=== PATIENT | female | born 1945 | race Caucasian/White ===

== ENCOUNTER 2023-11-09 09:48 | Outpatient (CLI) | payer OTHER ==
[~2023-11-09 09:48] MED LIST: BIOTIN5 MG PO; EVISTA60 MG PO; INTEGRA PLUS C1 EACH PO; INTEGRA PLUS CAPSULE PO; LOSARTAN POTAS100 MG PO; METFORMIN HCL500 M1 PO; METROPOLOL; NEURONTIN300 MG PO; OSTERA TABLET1 EACH PO; OXYC1TAB9 PO; PRAVASTATIN SOD40 MG PO; TIROSINT50 MCG PO; XARELTO 10MG PO; XARELTO10 MG PO; ZANTAC300 MG PO; [UNRECOGNIZED DRUG - OTHER]
[2023-11-09 11:02] LABS: HEMATOCRIT 33.9 % (36.0-45.00); HEMOGLOBIN 11.4 g/dL (12.0-15.00); MEAN CELL VOLUME 95.5 fL (80.00-100.00); MEAN CORPUSCULAR HEMOGLOBIN 32.1 pg (27.00-32.0); MEAN CORPUSCULAR HGB CONC 33.6 g/dl (32.0-36.0); PLATELET COUNT 166 K/uL (150-450); RED BLOOD COUNT 3.55 M/uL (4.00-6.00); RED CELL DISTRIBUTION WIDTH 13.4 % (11.5-14.5)
[2023-11-09 12:04] LABS: % SATURACION 24.9 % (15-50); ALBUMIN 3.4 gm/dL (3.4-5.0); BILIRUBIN TOTAL 0.43 mg/dL (0.3-1.2); CALCIUM 8.7 mg/dL (8.5-10.1); CREATININE SERUM 1.27 mg/dL (0.55-1.02); FERRITIN 61.4 NG/ML (8-252); GFR 40.8; GLOBULINA 3.4 G/DL (2.4-3.5); POTASSIUM 4.48 mEq/L (3.5-5.1); T4 FREE 1.14 NG/ML (0.76-1.46); TOTAL PROTEIN 6.8 gm/dL (6.4-8.2); TSH 1.99 uIU/mL (0.358-3.74)
[2023-11-09 12:30] LABS: FOLIC ACID 15.37 ng/ml (4.78-20)
[2023-11-09 13:46] LABS: MANUAL PLATELET COUNT 386
[2023-11-09 13:47] LABS: PLATELET ESTIMATE NORMAL (NORMAL)
[2023-11-10 11:11] LABS: CA 125 11.3 U/mL (0.0-38.1)
[2023-11-10 13:07] LABS: hgb a 97.7 % (96.4-98.8); hgb a2 2.3 % (1.8-3.2); hgb f 0 % (0.0-2.0); hgb s 0 % (0.0)
[2023-11-10 17:10] LABS: ERYTHROPOIETIN 19.5 mIU/mL (2.6-18.5)
[2023-11-11 17:11] LABS: INTRINSIC FACTOR BLOCKING AB 1.1 AU/mL (0.0-1.1)
[2023-11-12 07:09] LABS: g6pd quant 102 (127-427); rbc 3.63 x10E6/uL (3.77-5.28)
[2023-11-12 17:06] LABS: PARIETAL CELL ANTIBODIES 1.7 Units (0.0-20.0)
== END 2023-11-09 09:49 | disposition home or self-care (01) ==
LOC: LAB 09:48
PROVIDERS: ATTEND Internal Medicine Hematology & Oncology
DX: D51.1 Vitamin B12 deficiency anemia due to selective vitamin B12 malabsorption with proteinuria (principal); D51.3 Other dietary vitamin B12 deficiency anemia; I10 Essential (primary) hypertension; E11.9 Type 2 diabetes mellitus without complications; E78.2 Mixed hyperlipidemia; M79.7 Fibromyalgia; D50.8 Other iron deficiency anemias; R79.9 Abnormal finding of blood chemistry, unspecified; R74.02 Elevation of levels of lactic acid dehydrogenase [LDH]; K76.89 Other specified diseases of liver; E03.8 Other specified hypothyroidism; C56.9 Malignant neoplasm of unspecified ovary; R97.8 Other abnormal tumor markers; D63.1 Anemia in chronic kidney disease

== ENCOUNTER 2024-03-01 10:14 | Outpatient (CLI) | payer OTHER ==
[2024-03-01 10:54] LABS: HEMATOCRIT 38.2 % (36.0-45.00); HEMOGLOBIN 12.3 g/dL (12.0-15.00); MEAN CELL VOLUME 96.1 fL (80.00-100.00); MEAN CORPUSCULAR HGB CONC 32.3 g/dl (32.0-36.0); PLATELET COUNT 135 K/uL (150-450); RED BLOOD COUNT 3.97 M/uL (4.00-6.00); RED CELL DISTRIBUTION WIDTH 13.5 % (11.5-14.5)
[2024-03-01 12:10] LABS: ALBUMIN 3.7 gm/dL (3.4-5.0); BILIRUBIN TOTAL 0.54 mg/dL (0.3-1.2); CALCIUM 9.1 mg/dL (8.5-10.1); CREATININE SERUM 1.28 mg/dL (0.55-1.02); GFR 40.33; GLOBULINA 3.4 G/DL (2.4-3.5); POTASSIUM 4.02 mEq/L (3.5-5.1); TOTAL PROTEIN 7.1 gm/dL (6.4-8.2)
[2024-03-01 13:53] LABS: MANUAL PLATELET COUNT 238
[2024-03-01 13:54] LABS: PLATELET ESTIMATE NORMAL (NORMAL)
[2024-03-01 14:31] LABS: FOLIC ACID > 20.00 ng/ml (4.78-20)
== END 2024-03-01 10:20 | disposition home or self-care (01) ==
LOC: LAB 10:14
PROVIDERS: ATTEND Internal Medicine Hematology & Oncology
DX: D55.0 Anemia due to glucose-6-phosphate dehydrogenase [G6PD] deficiency (principal); D51.1 Vitamin B12 deficiency anemia due to selective vitamin B12 malabsorption with proteinuria; D51.3 Other dietary vitamin B12 deficiency anemia; D50.8 Other iron deficiency anemias; I10 Essential (primary) hypertension; E11.9 Type 2 diabetes mellitus without complications; E78.2 Mixed hyperlipidemia; M79.7 Fibromyalgia; R79.9 Abnormal finding of blood chemistry, unspecified; R74.02 Elevation of levels of lactic acid dehydrogenase [LDH]; K76.89 Other specified diseases of liver; D51.8 Other vitamin B12 deficiency anemias

== ENCOUNTER 2024-07-12 11:01 | Outpatient (CLI) | payer OTHER ==
[2024-07-12 12:06] LABS: HEMATOCRIT 38.8 % (36.0-45.00); HEMOGLOBIN 12.6 g/dL (12.0-15.00); MEAN CELL VOLUME 95.4 fL (80.00-100.00); MEAN CORPUSCULAR HGB CONC 32.5 g/dl (32.0-36.0); PLATELET COUNT 150 K/uL (150-450); RED BLOOD COUNT 4.07 M/uL (4.00-6.00); RED CELL DISTRIBUTION WIDTH 13.5 % (11.5-14.5)
[2024-07-12 12:12] LABS: PH,URINE 5.5 (5.0-8.0); URINE APPEARANCE Clear; URINE BILIRRUBIN Negative (NEGATIVE); URINE BLOOD Negative; URINE COLOR Yellow; URINE KETONE Negative (NEGATIVE); URINE LEUKOCYTE Negative; URINE NITRATE Negative; URINE PROTEIN Negative (NEGATIVE); URINE UROBILINOGEN 0.2 E.U./dl
[2024-07-12 12:17] LABS: URINE BACTERIA 200.5 uL (0.0-1933); URINE EPITHELIAL CELLS 7.7 uL (0.0-38.8); URINE WBC 24.8 uL (0.0-23.2)
[2024-07-12 12:19] LABS: URINE CAST 0.14 uL (0.0-1.40); URINE GLUCOSE >=1000 MG/DL (NEGATIVE); URINE RBC 0.8 uL (0.0-20.8)
[2024-07-12 13:07] LABS: ALBUMIN 3.7 gm/dL (3.4-5.0); BILIRUBIN TOTAL 0.44 mg/dL (0.3-1.2); CALCIUM 9.4 mg/dL (8.5-10.1); CHOL HDL RATIO 1.8 (0-5.0); CREATININE SERUM 1.54 mg/dL (0.55-1.02); GFR 32.58; GLOBULINA 3.9 G/DL (2.4-3.5); POTASSIUM 5.14 mEq/L (3.5-5.1); TOTAL PROTEIN 7.6 gm/dL (6.4-8.2)
[2024-07-12 13:18] LABS: MANUAL PLATELET COUNT 290; PLATELET ESTIMATE NORMAL (NORMAL)
[2024-07-12 14:38] LABS: T4 FREE 1.14 NG/ML (0.76-1.46); TSH 1.48 uIU/mL (0.358-3.74)
[2024-07-13 20:29] LABS: FOLIC ACID > 20.00 ng/ml (4.78-20)
[2024-07-14 09:07] LABS: COMPLEMENT C3 153 mg/dL (82-167); COMPLEMENT C4 38 mg/dL (12-38)
[2024-07-14 11:11] LABS: DNA AB DOUBLE STRABDED 8 IU/mL (0-9)
[2024-07-14 13:06] LABS: CYCLIC CITRULLINE PEPTIDE < 2 units (0-19)
== END 2024-07-12 11:05 | disposition home or self-care (01) ==
LOC: LAB 11:01
PROVIDERS: ATTEND Internal Medicine Hematology & Oncology
DX: D50.8 Other iron deficiency anemias (principal); R79.9 Abnormal finding of blood chemistry, unspecified; I10 Essential (primary) hypertension; R74.02 Elevation of levels of lactic acid dehydrogenase [LDH]; K76.89 Other specified diseases of liver; M32.19 Other organ or system involvement in systemic lupus erythematosus; M05.9 Rheumatoid arthritis with rheumatoid factor, unspecified; D55.0 Anemia due to glucose-6-phosphate dehydrogenase [G6PD] deficiency; D51.1 Vitamin B12 deficiency anemia due to selective vitamin B12 malabsorption with proteinuria; D51.3 Other dietary vitamin B12 deficiency anemia; E11.9 Type 2 diabetes mellitus without complications; E78.2 Mixed hyperlipidemia; M79.7 Fibromyalgia; E11.65 Type 2 diabetes mellitus with hyperglycemia; E03.8 Other specified hypothyroidism; E78.00 Pure hypercholesterolemia, unspecified

== ENCOUNTER 2024-08-25 08:00 | Outpatient (CLI) | payer OTHER | END 2024-08-25 23:00 | disposition home or self-care (01) | LOC: LAB 08:00 | PROVIDERS: ATTEND Internal Medicine Hematology & Oncology | DX: D50.8 Other iron deficiency anemias (principal); I10 Essential (primary) hypertension; R74.02 Elevation of levels of lactic acid dehydrogenase [LDH]; K76.89 Other specified diseases of liver; R94.5 Abnormal results of liver function studies; K76.9 Liver disease, unspecified; E11.9 Type 2 diabetes mellitus without complications; E78.2 Mixed hyperlipidemia; M79.7 Fibromyalgia; D51.1 Vitamin B12 deficiency anemia due to selective vitamin B12 malabsorption with proteinuria; D51.3 Other dietary vitamin B12 deficiency anemia ==